=== PATIENT | female | born 1980 | race Two or more races ===

== ENCOUNTER 2023-06-23 18:43 | Emergency (ER) | payer OTHER, SELFPAY ==
--- NOTE | ~2023-06-23 | XR_ITS ---
EXAMINATION: X-RAY LUMBAR SPINE X-RAY SACRUM/COCCYX CLINICAL INFORMATION: Fall, pain. COMPARISON: None available. TECHNIQUE: 3 views of the lumbar spine. 3 views of the sacrum/coccyx. FINDINGS: Lumbar spine: No evidence of acute compression deformity or subluxation. Mild intervertebral disc height loss and facet arthropathy at L5-S1. Small anterior osteophytes at T12 and L1. No significant paraspinal soft tissue abnormality. Right upper quadrant surgical clips. Sacrum/coccyx: No fractures or subluxation. Symmetric SI joints. Pelvic rim is maintained. No significant soft tissue abnormality. XR/XR sacrum coccyx min 2V IMPRESSION: 1. No acute compression deformity or subluxation. 2. Mild lumbar spondylosis at L5-S1. 3. No acute fractures or subluxation of the sacrum/coccyx.
--- NOTE | ~2023-06-23 | XR_ITS ---
EXAMINATION: X-RAY LUMBAR SPINE X-RAY SACRUM/COCCYX CLINICAL INFORMATION: Fall, pain. COMPARISON: None available. TECHNIQUE: 3 views of the lumbar spine. 3 views of the sacrum/coccyx. FINDINGS: Lumbar spine: No evidence of acute compression deformity or subluxation. Mild intervertebral disc height loss and facet arthropathy at L5-S1. Small anterior osteophytes at T12 and L1. No significant paraspinal soft tissue abnormality. Right upper quadrant surgical clips. Sacrum/coccyx: No fractures or subluxation. Symmetric SI joints. Pelvic rim is maintained. No significant soft tissue abnormality. XR/XR lumbar spine 2-3V IMPRESSION: 1. No acute compression deformity or subluxation. 2. Mild lumbar spondylosis at L5-S1. 3. No acute fractures or subluxation of the sacrum/coccyx.
--- NOTE | 2023-06-23 19:30 | ED.FALL ---
HPI - Fall General Chief Complaint: Back Pain/Injury Stated Complaint: fall at work Time Seen by Provider: 06/23/23 21:19 History of Present Illness HPI Narrative: See additional note from 06/23/2023, Dr. Mustafa Related Data Previous Rx's Medication Instructions Recorded cyclobenzaprine 10 mg tablet 10 mg PO TID PRN muscle spasm #10 06/23/23 tabs ketorolac 10 mg tablet 10 mg PO BID #7 tabs 06/23/23 Allergies Allergy/AdvReac Type Severity Reaction Status Date / Time ibuprofen Allergy Unknown Unknown Verified 06/23/23 19:33 Sulfa (Sulfonamide Allergy Unknown Unknown Verified 06/23/23 19:33 Antibiotics) PMFSH Social History Social History Smoked in Last 30 Days: No Use of substances other than those prescribed or required for medical reasons: No Advance Directives: No Advance Directives Information Provided: No Patient : No Physical Exam Vital Signs: Vital Signs: Last Vital Signs Temp 98.2 F 06/23/23 22:00 Pulse 79 06/23/23 22:00 Resp 12 06/23/23 22:00 BP 143/90 H 06/23/23 22:00 Pulse Ox 97 06/23/23 22:00 O2 Del Method Room Air 06/23/23 22:00 BMI result Body Mass Index 42.3 Course Course Course Narrative: This is an RME: Additional HPI, ROS, PE not included below will be deferred to primary provider. Patient 43 year old female who presents emergency department for evaluation of a mechanical cell while work landing on the buttocks pain coccyx region. Medications Administered Discontinued Medications Generic Name Dose Route Start Last Admin Trade Name Freq PRN Reason Stop Dose Admin Cyclobenzaprine HCl 10 mg 06/23/23 21:32 06/23/23 21:47 Cyclobenzaprine Hcl 10 Mg Tablet PO 06/23/23 21:33 10 mg ONCE ONE Administration Ketorolac Tromethamine 60 mg 06/23/23 21:49 06/23/23 21:54 Ketorolac Tromethamine 60 Mg/2 Ml Vial IM 06/23/23 21:50 60 mg ONCE ONE Administration Discharge Plan Discharge Clinical Impression: Lumbar contusion Patient Disposition: Home, Self-Care Instructions: Acute Low Back Pain (ED), Contusion in Adults (ED) Additional Instructions: Please follow-up with your primary care physician tomorrow. If you have any worsening or new symptoms, please return to the emergency room or call 911 Prescriptions: New ketorolac 10 mg tablet 10 mg PO BID Qty: 7 0RF Rx Instructions: maximum total duration of 5 days from all oral, intranasal, or parenteral formulations cyclobenzaprine 10 mg tablet 10 mg PO TID PRN (Reason: muscle spasm) Qty: 10 0RF Stand Alone Forms: Work/School Release Interventions: ED Discharge Assessment Last Done: 06/23/23 22:00 Discharge Date/Time: 06/23/23 22:01
[2023-06-23 19:33] VITALS: BP 129/74; PULSE 80; RESP 20; TEMP 36.3; O2SAT 97; BMI 42.3
[2023-06-23 20:56] VITALS: BP 135/83; PULSE 82; RESP 19; TEMP 36.7; O2SAT 97
--- NOTE | 2023-06-23 21:39 | ED.BACK ---
HPI - Back Pain/Injury General Chief Complaint: Back Pain/Injury Stated Complaint: fall at work Time Seen by Provider: 06/23/23 21:19 Source: patient Mode of arrival: ambulatory Limitations: no limitations History of Present Illness HPI Narrative: Patient comes to the emergency room complaining of lower back pain. Patient states that earlier today patient was at work, patient landed in her buttocks. Patient complaining of lower/coccyx pain. Patient denies head strike, no loss of consciousness, denies being on blood thinners. Patient states that the pain does not radiate down the legs and is able to walk with steady gait. Denies urinary/fecal incontinence or retention Related Data Previous Rx's Medication Instructions Recorded cyclobenzaprine 10 mg tablet 10 mg PO TID PRN muscle spasm #10 06/23/23 tabs ketorolac 10 mg tablet 10 mg PO BID #7 tabs 06/23/23 Allergies Allergy/AdvReac Type Severity Reaction Status Date / Time ibuprofen Allergy Unknown Unknown Verified 06/23/23 19:33 Sulfa (Sulfonamide Allergy Unknown Unknown Verified 06/23/23 19:33 Antibiotics) Review of Systems Review of Systems: Constitutional : No Weight loss, No Fever, No Chills, No Night Sweats, No Fatigue, No Malaise ENT/Mouth : No Hearing loss, No Ear Pain, No Nasal Congestion, No Sinus Pain, No Hoarseness, No sore throat, No Rhinorrhea, No Swallowing Difficulty Eyes: No Eye Pain, No Swelling, No Redness, No Foreign Body, No Discharge, No Vision Changes Cardiovascular : No Chest Pain, No SOB, No Dyspnea on Exertion, No Orthopnea, No Edema, No Palpitations Respiratory : No Cough, No Sputum, No Wheezing, No Smoke Exposure, No Dyspnea Gastrointestinal : No Nausea, No Vomiting, No Diarrhea, No Constipation, No abdominal Pain, No Hematochezia, No Melena Genitourinary : no irregular bleeding, No Dysuria, No Urinary Frequency, No Hematuria, No Urinary Incontinence, No Urgency, No Flank Pain, No Urinary Flow Changes, No Hesitancy Musculoskeletal : Complaining of lumbar/coccyx pain, No joint pain, No Myalgias, No Joint Swelling Skin : No Skin Lesions, No rash Neuro : No Weakness, No Numbness, No Paresthesias, No Loss of Consciousness, No Dizziness, No Headache Psych : No Anxiety/Panic, No Depression, No SI/HI/AH/VH, No Social Issues, Heme/Lymph: No Bruising, No Bleeding,No Lymphadenopathy Endocrine : No Polyuria, No Polydipsia, No Temperature Intolerance [facility] Social History Social History Advance Directives: No Advance Directives Information Provided: No Physical Exam Vital Signs: Vital Signs: Last Vital Signs Temp 98.1 F 06/23/23 20:56 Pulse 82 06/23/23 20:56 Resp 19 06/23/23 20:56 BP 135/83 06/23/23 20:56 Pulse Ox 97 06/23/23 20:56 O2 Del Method Room Air 06/23/23 20:56 BMI result Body Mass Index 42.3 Const: Other: Appearance: Alert. Oriented X3. No acute distress. Eyes: Pupils equal, round and reactive to light. ENT: Pharynx normal. Neck: Normal inspection. Neck supple. No lymph nodes noted. No crepitus CVS: Normal heart rate and rhythm. Pulses normal. Normal S1 and S2 Respiratory: No respiratory distress. Breath sounds normal. No Wheezing. No rales Abdomen: Soft and nontender. No rigidity. No distention. Back: Pain to palpation in lumbar and spinal area, no bilateral pain. No ecchymosis, patient able to flex and extend the lumbar area and entire back without any range of motion or significant pain. Normal gait Skin: Skin warm and dry. Normal skin color. Normal skin turgor. Extremities: No lower extremity edema. No Lacerations. No Rash Neuro: Oriented X 3. No motor deficit. No sensory deficit. Moving all extremities. No slurred speech. CN 2 through 12 grossly intact Psych: calm, cooperative, normal affect Medical Decision Making Medical Decision Making MDM Narrative: My interpretation of x-rays of the lumbar/coccyx: Normal alignment, no obvious deformity. -patient was given IM Toradol and cyclobenzaprine. -according to patient's records, patient is that she is allergic to ibuprofen. I spoke with the patient, patient states that ?many years ago? patient had a mild rash and 1 of her arms. Patient states that she has had multiple doses of ibuprofen without any allergic reaction. Patient denies any anaphylaxis symptoms. Differential Diagnosis Differential Diagnoses: The differential diagnosis associated with the presentation includes (Lumbar contusion, coccyx contusion, fracture) Independent Interpretation I performed an independent interpretation of an: Plain X-Ray Radiology Impression Discussion of test interpretation with radiology: I have reviewed the radiologist's reading. Radiologist Impression: FINDINGS: Lumbar spine: No evidence of acute compression deformity or subluxation. Mild intervertebral disc height loss and facet arthropathy at L5-S1. Small anterior osteophytes at T12 and L1. No significant paraspinal soft tissue abnormality. Right upper quadrant surgical clips. Sacrum/coccyx: No fractures or subluxation. Symmetric SI joints. Pelvic rim is maintained. No significant soft tissue abnormality. XR/XR lumbar spine 2-3V IMPRESSION: 1. No acute compression deformity or subluxation. 2. Mild lumbar spondylosis at L5-S1. 3. No acute fractures or subluxation of the sacrum/coccyx. Discharge Plan Discharge Clinical Impression: Lumbar contusion Patient Disposition: Home, Self-Care Instructions: Acute Low Back Pain (ED), Contusion in Adults (ED) Additional Instructions: Please follow-up with your primary care physician tomorrow. If you have any worsening or new symptoms, please return to the emergency room or call 911 Prescriptions: New ketorolac 10 mg tablet 10 mg PO BID Qty: 7 0RF Rx Instructions: maximum total duration of 5 days from all oral, intranasal, or parenteral formulations cyclobenzaprine 10 mg tablet 10 mg PO TID PRN (Reason: muscle spasm) Qty: 10 0RF Stand Alone Forms: Work/School Release
[2023-06-23] MEDS: Cyclobenzaprine HCl 10 MG TABLET PO (21:47)
[2023-06-23] MEDS: Ketorolac Tromethamine 60 MG/2 ML VIAL IM (21:54)
[2023-06-23 22:00] VITALS: BP 143/90; PULSE 79; RESP 12; TEMP 36.8; O2SAT 97
== END 2023-06-23 22:01 | disposition home or self-care (01) ==
PROVIDERS: Emergency Provider Emergency Medicine; PCP Nurse Practitioner Family
DX: S30.0XXA Contusion of lower back and pelvis, initial encounter (principal); W01.10XA Fall on same level from slipping, tripping and stumbling with subsequent striking against unspecified object, initial encounter; Y93.9 Activity, unspecified; Y92.9 Unspecified place or not applicable; Y99.0 Civilian activity done for income or pay
CPT/HCPCS: 72100; 72220; 96372; 99284; J1885

== ENCOUNTER 2023-09-19 16:21 | Emergency (ER) | payer OTHER, SELFPAY ==
--- NOTE | ~2023-09-19 | CT_ITS ---
EXAMINATION: CT ABDOMEN AND PELVIS WITHOUT IV CONTRAST CLINICAL INFORMATION: Right lower abdominal pain COMPARISON: None TECHNIQUE: Multiple axial images were obtained from the superior aspect of the liver through the pubic symphysis without intravenous contrast. Images were evaluated on independent dedicated 3-D workstation and 3-D images were reconstructed with concurrent radiologist supervision and subsequently interpreted. Oral contrast was not administered. This CT examination was performed using dose optimization techniques as appropriate, variously including the following: *Automated exposure control *Adjustment of mA and/or kV according to patient size (this includes techniques or standardized protocols for targeted exams where dose is matched to indication/reason for exam; i.e. extremities or head) *Use of iterative reconstruction technique DLP: 1249 mGy-cm FINDINGS: LUNG BASES: The visualized lung bases are clear. CARDIOMEDIASTINUM: The visualized heart is normal in size without pericardial effusion. No coronary artery calcification. LIVER: Homogeneous in attenuation. Normal in size. GALLBLADDER: Absent BILIARY SYSTEM: No intrahepatic or extrahepatic biliary dilation. PANCREAS: Atrophic. No contour deforming solid mass. SPLEEN: Normal in size. GENITOURINARY: No contour deforming masses. No perinephric fluid collection. No renal calculi. No hydroureteronephrosis. ADRENAL GLANDS: Unremarkable. REPRODUCTIVE: Anteverted uterus. Left adnexal cyst measuring 4.1 cm (HU 14). GASTROINTESTINAL: The visualized alimentary tract is normal in course. No evidence of obstruction. APPENDIX: The appendix is not visualized; however, no pericecal inflammatory changes are seen in the right lower quadrant. PERITONEUM: No pneumoperitoneum. No intra-abdominal fluid collection. VASCULATURE: No abdominal aortic aneurysm. LYMPH NODES: No pathologically enlarged abdominal or pelvic lymph nodes. SOFT TISSUES/MUSCULOSKELETAL: There is no acute fracture or significant focal osseous lesion. CT/CT abdomen pelvis wo IV con IMPRESSION: No acute pathology of the abdomen or pelvis on this noncontrast study. Fleischner guidelines were followed.
[2023-09-19 16:31] VITALS: BP 153/74; PULSE 92; RESP 18; TEMP 36.7; O2SAT 98; BMI 47.9
--- NOTE | 2023-09-19 16:31 | ED.GENADULT ---
HPI - General Adult General Chief complaint: Fever Stated complaint: fever shallow breathing bone ache Time Seen by Provider: 09/19/23 18:09 Source: patient Mode of arrival: ambulatory Limitations: no limitations History of Present Illness ED Provider: ILDA HICKMAN PA-C HPI narrative: 43-year-old female with past medical history significant for asthma presents to the ED today for evaluation of general malaise, diffuse myalgias, intermittent fevers, and multiple episodes of diarrhea x2 days. States her stool is completely watery. Reports associated right lower quadrant pain that does not radiate. Admits to T-max of a 103? at home last night. Reports noticing an itchy rash just below her umbilicus a few days ago. Reports taking Tylenol, DayQuil and NyQuil with minimal relief. Last dose around 11:00 a.m. today. Denies known sick contacts. Denies recent antibiotic use. Admits she attended a concert with over [phone] people denies prior to onset of symptoms. Denies known recent tick or insect bites however does report [place] outside in the [place] during father's Day weekend. Denies sore throat, cough, constipation, nausea or vomiting, constipation, joint swelling. Denies chance of . Related Data Previous Rx's ?Medication ?Instructions ?Recorded cyclobenzaprine 10 mg tablet 10 mg PO TID PRN muscle spasm #10 06/23/23 tabs ketorolac 10 mg tablet 10 mg PO BID #7 tabs 06/23/23 mupirocin 2 % topical ointment 1 appl topical TID #15 grams 09/19/23 Allergies Allergy/AdvReac Type Severity Reaction Status Date / Time ibuprofen Allergy Unknown Unknown Verified 09/19/23 16:37 Sulfa (Sulfonamide Allergy Unknown Unknown Verified 09/19/23 16:37 Antibiotics) Review of Systems Review of Systems: Constitutional: No fever, chills, fatigue, night sweats, weight changes ENT/Mouth: No ear pain, hearing loss, nasal congestion, sinus pain, rhinorrhea, sore throat Eyes: No eye pain, swelling, redness, vision changes, discharge Cardio: No chest pain, palpitations, POMPA, orthopnea, peripheral edema Pulm: No SOB, cough, sputum, wheezing, dyspnea, hemoptysis GI: No nausea, vomiting, hematemesis, constipation, hematochezia, melena, +diarrhea, + abdominal pain : No irregular bleeding, dysuria, frequency, urgency, hesitancy, hematuria, flank pain, urinary flow changes, urinary incontinence or retention MSK: No back pain, neck pain, joint pain, +myalgias Skin: No lesions, rashes Neuro: No weakness, numbness, paresthesias, LOC, dizziness, headache Psych: No anxiety/panic, depression, SI/HI, AH/VH All other systems reviewed and are negative. [facility] Past Medical History Attestation statement: The following information was validated with the patient. Source: old records reviewed and nursing notes reviewed Social History Social History Smoked in Last 30 Days: No Advance Directives: No Advance Directives Information Provided: No Do you have a plan to hurt others: No Plan Physical Exam ED Vital Signs: Vital Signs - 24 hr 09/19/23 16:31 09/19/23 19:20 09/19/23 22:13 Temperature 98.1 F 98.1 F 98.3 F Pulse Rate 92 82 90 Respiratory Rate 18 20 20 Blood Pressure 153/74 H 136/80 159/89 H Pulse Oximetry 98 97 96 Oxygen Delivery Method Room Air Room Air Room Air 09/20/23 00:54 Temperature 98.3 F Pulse Rate 90 Respiratory Rate 20 Blood Pressure 159/89 H Pulse Oximetry 96 Oxygen Delivery Method Room Air BMI result Body Mass Index 47.9 Patient hypertensive, vitals otherwise WNL. Afebrile Const Other: Slightly diaphoretic, ill-appearing General: cooperative, comfortable and no acute distress Orientation/consciousness: patient oriented x3 Limitations: no limitations [facility] Head: Yes normal to inspection Ears: hearing grossly normal bilaterally, external ears normal, TM's normal bilaterally, EAC's normal, mastoids normal and no periauricular adenopathy Mouth: Normal oral and palatal mucosa present Throat: Yes posterior oropharynx normal, Yes tonsils normal and Yes uvula midline Eyes General: appearance normal, both eyes and all related structures Neck Neck: Yes normal visual inspection, Yes full ROM, Yes no lymphadenopathy and Yes no meningeal signs Resp Effort & Inspection: normal respiratory effort and able to speak in complete sentences Auscultation: clear to auscultation bilaterally Cardio Rate: regular rate Rhythm: regular rhythm GI Other: + see photo of lower abdomen below + obese abdomen, soft, nondistended, tender to palpation of right lower quadrant without rebound tenderness or guarding. Normoactive bowel sounds x4. General: Yes no CVA tenderness Back/Spine/Pelvis Back: no CVA tenderness Skin Other: + see photos + Maculopapular rash noted to lower abdomen just under umbilicus. No sloughing. No involvement of palms, soles, web spaces. No involvement of mucous membranes. No target lesions noted. Non dermatomal pattern. Neuro General: patient oriented x3 and no meningeal signs Course Course Course Narrative: This is a rapid medical exam performed by Leslie Neff NP: Additional HPI, ROS, PE not included below will be deferred to primary provider. Patient is a 43-year-old female with history of asthma presenting to the ED with complaint of fatigue, fever, shortness of breath since Monday. Called out of work yesterday, felt slightly better today after taking medication so came in to work, then felt short of breath again. Denies N/V/D. Generalized body aches. Recently at a concert with large amount of people. Plan: viral and strep swabs Reevaluation(s) Reevaluation #1: 1908-- She has tested negative for covid, flu, rsv, and strep throat. Patient stable at the end of my shift. Sign-out given to Cary HOWARD pending labs, UA, CT, Gi panel/ cdiff, IVF, and disposition. Time: 20:44 Reevaluation #2: Received patient in sign out pending labs, UA, GI panel, and CT A/P. Labs grossly within normal limits. UA, GI panel, and CT A/P pending. Patient signed out to ANITA Herron for final disposition. Reevaluation #3: CT/CT abdomen pelvis wo IV con IMPRESSION: No acute pathology of the abdomen or pelvis on this noncontrast study. Urinalysis without infection or microscopic hematuria, GI panel stool studies sent and are pending. C diff negative. Symptoms at this time most consistent with viral syndrome, and folliculitis of the abdomen. Stable for discharge home Time: 21:38 Medications Administered Discontinued Medications Generic Name Dose Route Start Last Admin Trade Name Freq PRN Reason Stop Dose Admin Sodium Chloride 1,000 mls @ 999 mls/hr 09/19/23 18:30 09/19/23 20:37 Ns IV 09/19/23 19:30 Infused .Q1H1M KRISS Infusion Medical Decision Making Medical Decision Making [facility] Narrative: 43-year-old female with past medical history significant for asthma presents to the ED today for evaluation of general malaise, diffuse myalgias, intermittent fevers, and multiple episodes of diarrhea x2 days. Patient is slightly hypertensive, vitals otherwise WNL. Afebrile. On exam, obese abdomen, soft, nondistended, tender to palpation of right lower quadrant without rebound tenderness or guarding. Maculopapular rash noted to lower abdomen just under umbilicus. No sloughing. No involvement of palms, soles, web spaces. No involvement of mucous membranes. No target lesions noted. Non dermatomal pattern. No joint effusions. No CVAT bilaterally. Differential diagnosis includes viral syndrome, anemia, electrolyte derangement, dehydration, appendicitis, diverticulosis, diverticulitis. Viral swabs and strep swab obtained prior to my assumption of care. Will add on basic labs, GI panel, C diff testing, Lyme/tick panel, IV fluids, CT abdomen/pelvis and urinalysis. Differential Diagnosis Differential Diagnoses: The differential diagnosis associated with the presentation includes as above. Admission/Observation Consideration of admission/observation: Escalation of care including admission/observation considered Admission considered on presentation. Lab Data [facility] Lab Attestation statement: I reviewed the patient's lab results. as above. 09/19/23 18:28 09/19/23 18:28 Labs: Lab Results 09/19/23 09/19/23 09/19/23 Range/Units 16:47 18:28 22:28 WBC 6.2 (4.8-10.8) X10*3/uL RBC 4.36 (4.20-5.50) X10*6/uL Hgb 12.2 (12.0-16.0) g/dl Hct 36.1 L (37.0-47.0) % MCV 82.8 (80.0-98.0) fL MCH 28.0 (27.0-33.0) pg MCHC 33.8 (31.0-35.0) g/dl RDW 14.2 (11.0-16.0) % Plt Count 225 (160-400) X10*3/uL MPV 10.6 (9.4-12.3) fL Immature Gran % (Auto) 0.2 (0.0-0.4) % Neut % (Auto) 68.8 (45-73) % Lymph % (Auto) 18.9 L (20-40) % [place] % (Auto) 8.5 (2-11) % Eos % (Auto) 3.4 (0-4) % Baso % (Auto) 0.2 (0-2) % Lymph # (Auto) 1.2 (1.2-4.9) X10*3/uL [place] # (Auto) 0.5 (0.1-1.2) X10*3/uL Eos # (Auto) 0.2 (0.0-0.4) X10*3/uL Baso # (Auto) 0.0 (0.0-0.2) X10*3/uL Abs Immat Gran (auto) 0.01 (0.00-0.03) X10*3/uL Absolute Neuts (auto) 4.3 (2.0-8.3) x10*3/uL Absolute Nucleated RBC 0.000 (0.0-0.012) X10*3/uL Nucleated RBC % (auto) 0.0 (0.0-0.2) /100WBC Sodium 142 (135-145) mmol/L Potassium 3.9 (3.3-5.1) mmol/L Chloride 106 (96-108) mmol/L Carbon Dioxide 32 H (22-29) mmol/L Anion Gap 8 L (12-20) BUN 17 H (9-16) mg/dL Creatinine 0.77 (0.5-1.4) mg/dL Estim Creat Clear Calc 151.1 Estimated GFR > 60 Random Glucose 88 (60-115) mg/dL Calcium 9.1 (8.4-10.2) mg/dL Magnesium 2.1 (1.6-2.6) mg/dL Total Bilirubin 1.2 H (0.0-1.0) mg/dL AST 43 H (5-31) U/L ALT 72 H (0-31) U/L Alkaline Phosphatase 46 (39-117) U/L Total Protein 6.7 (6.5-8.0) g/dL Albumin 4.0 (3.5-5.0) g/dL Lipase 14 (8-78) U/L Beta HCG, Quant < 2 mIU/mL Urine Color Yellow Urine Appearance Clear Urine pH 6.5 (5.0-9.0) Ur Specific [place] 1.025 (1.005-1.025) Urine Protein Trace (Neg-Trace) mg/dL Urine Glucose (UA) Negative (Negative) mg/dL Urine Ketones Negative (Negative) mg/dL Urine Blood Negative (Negative) Urine Nitrite Negative (Negative) Ur Leukocyte Esterase Negative (Negative) C. difficile Tox B Gene (Negative) Influenza Type A (PCR) NEGATIVE (Negative) Influenza Type B (PCR) NEGATIVE (Negative) RSV RNA Qual (PCR) NEGATIVE (Negative) SARS-CoV-2 RNA (RT-PCR) NEGATIVE (Negative) S. pyogenes GrpA HAIDER Negative (Negative) 09/19/23 Range/Units 22:49 WBC (4.8-10.8) X10*3/uL RBC (4.20-5.50) X10*6/uL Hgb (12.0-16.0) g/dl Hct (37.0-47.0) % MCV (80.0-98.0) fL MCH (27.0-33.0) pg MCHC (31.0-35.0) g/dl RDW (11.0-16.0) % Plt Count (160-400) X10*3/uL MPV (9.4-12.3) fL Immature Gran % (Auto) (0.0-0.4) % Neut % (Auto) (45-73) % Lymph % (Auto) (20-40) % [place] % (Auto) (2-11) % Eos % (Auto) (0-4) % Baso % (Auto) (0-2) % Lymph # (Auto) (1.2-4.9) X10*3/uL [place] # (Auto) (0.1-1.2) X10*3/uL Eos # (Auto) (0.0-0.4) X10*3/uL Baso # (Auto) (0.0-0.2) X10*3/uL Abs Immat Gran (auto) (0.00-0.03) X10*3/uL Absolute Neuts (auto) (2.0-8.3) x10*3/uL Absolute Nucleated RBC (0.0-0.012) X10*3/uL Nucleated RBC % (auto) (0.0-0.2) /100WBC Sodium (135-145) mmol/L Potassium (3.3-5.1) mmol/L Chloride (96-108) mmol/L Carbon Dioxide (22-29) mmol/L Anion Gap (12-20) BUN (9-16) mg/dL Creatinine (0.5-1.4) mg/dL Estim Creat Clear Calc Estimated GFR Random Glucose (60-115) mg/dL Calcium (8.4-10.2) mg/dL Magnesium (1.6-2.6) mg/dL Total Bilirubin (0.0-1.0) mg/dL AST (5-31) U/L ALT (0-31) U/L Alkaline Phosphatase (39-117) U/L Total Protein (6.5-8.0) g/dL Albumin (3.5-5.0) g/dL Lipase (8-78) U/L Beta HCG, Quant mIU/mL Urine Color Urine Appearance Urine pH (5.0-9.0) Ur Specific [place] (1.005-1.025) Urine Protein (Neg-Trace) mg/dL Urine Glucose (UA) (Negative) mg/dL Urine Ketones (Negative) mg/dL Urine Blood (Negative) Urine Nitrite (Negative) Ur Leukocyte Esterase (Negative) C. difficile Tox B Gene NEGATIVE (Negative) Influenza Type A (PCR) (Negative) Influenza Type B (PCR) (Negative) RSV RNA Qual (PCR) (Negative) SARS-CoV-2 RNA (RT-PCR) (Negative) S. pyogenes GrpA HAIDER (Negative) Independent Interpretation I performed an independent interpretation of an: CT Scan Interpretation: CT abdomen/ pelvis without bowel wall thickening, agree with radiologist's interpretation. Radiology Impression Discussion of test interpretation with radiology: I have reviewed the radiologist's reading. Radiologist Impression: EXAMINATION: CT ABDOMEN AND PELVIS WITHOUT IV CONTRAST CLINICAL INFORMATION: Right lower abdominal pain COMPARISON: None TECHNIQUE: Multiple axial images were obtained from the superior aspect of the liver through the pubic symphysis without intravenous contrast. Images were evaluated on independent dedicated 3-D workstation and 3-D images were reconstructed with concurrent radiologist supervision and subsequently interpreted. Oral contrast was not administered. This CT examination was performed using dose optimization techniques as appropriate, variously including the following: *Automated exposure control *Adjustment of mA and/or kV according to patient size (this includes techniques or standardized protocols for targeted exams where dose is matched to indication/reason for exam; i.e. extremities or head) *Use of iterative reconstruction technique DLP: 1249 mGy-cm FINDINGS: LUNG BASES: The visualized lung bases are clear. CARDIOMEDIASTINUM: The visualized heart is normal in size without pericardial effusion. No coronary artery calcification. LIVER: Homogeneous in attenuation. Normal in size. GALLBLADDER: Absent BILIARY SYSTEM: No intrahepatic or extrahepatic biliary dilation. PANCREAS: Atrophic. No contour deforming solid mass. SPLEEN: Normal in size. GENITOURINARY: No contour deforming masses. No perinephric fluid collection. No renal calculi. No hydroureteronephrosis. ADRENAL GLANDS: Unremarkable. REPRODUCTIVE: Anteverted uterus. Left adnexal cyst measuring 4.1 cm (HU 14). GASTROINTESTINAL: The visualized alimentary tract is normal in course. No evidence of obstruction. APPENDIX: The appendix is not visualized; however, no pericecal inflammatory changes are seen in the right lower quadrant. PERITONEUM: No pneumoperitoneum. No intra-abdominal fluid collection. VASCULATURE: No abdominal aortic aneurysm. LYMPH NODES: No pathologically enlarged abdominal or pelvic lymph nodes. SOFT TISSUES/MUSCULOSKELETAL: There is no acute fracture or significant focal osseous lesion. CT/CT abdomen pelvis wo IV con IMPRESSION: No acute pathology of the abdomen or pelvis on this noncontrast study. Fleischner guidelines were followed. Prescription Management I considered prescription management with: Pain Medication and Antibiotic Social Determinants Patient?s care significantly limited by Social Determinants of Health including: Other Social Determinant of Health Critical Care Time Critical Care Time Critical Care Time: No Discharge Plan Discharge Clinical Impression: Viral infection, Folliculitis Patient Disposition: Home, Self-Care Instructions: Viral Syndrome (ED) Additional Instructions: You were evaluated in the emergency department today for fever and diarrhea. Your Covid, flu, and strep tests were all negative. Your symptoms are likely related to a viral illness which will resolve on its own with time and rest. You were also evaluated for a rash to your abdomen. You are being prescribed a topical antibiotic ointment to apply to the area. Avoid scratching the area as this can worsen the infection. Assess the area daily and follow up with PCP or return to the ED if you develop increasing redness, swelling, or thick yellow drainage. You should ensure adequate fluid intake, and can use Tylenol 650 mg or ibuprofen 600 mg every 6 hours as needed for fever or discomfort. Please follow-up with your primary care provider this week. Return to the emergency department if you develop chest pain, worsening shortness of breath, difficulty swallowing, fever 100.4? F or greater or any other concerning symptoms. Prescriptions: New mupirocin 2 % ointment 1 appl topical TID Qty: 15 0RF No Action ketorolac 10 mg tablet 10 mg PO BID Qty: 7 0RF Rx Instructions: maximum total duration of 5 days from all oral, intranasal, or parenteral formulations cyclobenzaprine 10 mg tablet 10 mg PO TID PRN (Reason: muscle spasm) Qty: 10 0RF Stand Alone Forms: Work/School Release Interventions: ED Discharge Assessment Last Done: 09/20/23 00:54 Discharge Date/Time: 09/20/23 00:56 Print Language: [place]
[2023-09-19 17:03] LABS: IDNOW Serial# 58CA691E; Strep A Nucleic Acid Negative (Negative)
[2023-09-19 17:34] LABS: Influenza A PCR NEGATIVE (Negative); Influenza B PCR NEGATIVE (Negative); Resp Syncy Virus RNA Qual PCR NEGATIVE (Negative); SARS COV2 PCR INHOUSE NEGATIVE (Negative)
[2023-09-19] MEDS: 0.9 % Sodium Chloride 1,000 ML 999 ML IV (18:32)
[2023-09-19 18:35] LABS: MANUAL DIFF FLAG NO
[2023-09-19 18:48] LABS: Basophils Percent Auto 0.2 % (0-2); Eosinophils Absolute Auto 0.2 X10*3/uL (0.0-0.4); Eosinophils Percent Auto 3.4 % (0-4); Hematocrit 36.1 % (37.0-47.0); Hemoglobin 12.2 g/dl (12.0-16.0); Imm Gran Abs Auto 0.01 X10*3/uL (0.00-0.03); Imm Gran Pct Auto 0.2 % (0.0-0.4); Lymphocytes Absolute Auto 1.2 X10*3/uL (1.2-4.9); Lymphocytes Percent Auto 18.9 % (20-40); Mean Corpuscular HGB Conc 33.8 g/dl (31.0-35.0); Mean Corpuscular Volume 82.8 fL (80.0-98.0); Mean Platelet Volume 10.6 fL (9.4-12.3); Monocytes Absolute Auto 0.5 X10*3/uL (0.1-1.2); Monocytes Percent Auto 8.5 % (2-11); Neutrophils Absolute Auto 4.3 x10*3/uL (2.0-8.3); Neutrophils Percent Auto 68.8 % (45-73); Platelet Count 225 X10*3/uL (160-400); Red Blood Count 4.36 X10*6/uL (4.20-5.50); Red Cell Distribution Width 14.2 % (11.0-16.0); White Blood Count 6.2 X10*3/uL (4.8-10.8)
[2023-09-19 18:56] LABS: Alanine Aminotransferase 72 U/L (0-31); Alkaline Phosphatase 46 U/L (39-117); Anion Gap 8 (12-20); Aspartate Amino Transferase 43 U/L (5-31); Bilirubin Total 1.2 mg/dL (0.0-1.0); Blood Urea Nitrogen 17 mg/dL (9-16); Calcium 9.1 mg/dL (8.4-10.2); Carbon Dioxide 32 mmol/L (22-29); Chloride 106 mmol/L (96-108); Creatinine Clr Calc Pharmacy 151.1; Estimated Glomerular Filt Rate > 60; Glucose Random 88 mg/dL (60-115); Lipase 14 U/L (8-78); Magnesium 2.1 mg/dL (1.6-2.6); Potassium 3.9 mmol/L (3.3-5.1); Sodium 142 mmol/L (135-145); Total Protein 6.7 g/dL (6.5-8.0)
[2023-09-19 18:57] LABS: HCG Quantitative < 2 mIU/mL
[2023-09-19 19:20] VITALS: BP 136/80; PULSE 82; RESP 20; TEMP 36.7; O2SAT 97
[2023-09-19 22:13] VITALS: BP 159/89; PULSE 90; RESP 20; TEMP 36.8; O2SAT 96
[2023-09-19 22:36] LABS: Appearance Urine Clear; Color Urine Yellow; Glucose Urine UA Negative (Negative); Leukocyte Esterase Urine Negative (Negative); Nitrite Urine Negative (Negative); PH 6.5 (5.0-9.0); Specific Gravity - Urine 1.025 (1.005-1.025); Urine Blood Negative (Negative); Urine Ketones Negative (Negative); Urine Protein Trace mg/dL (Neg-Trace)
--- NOTE | 2023-09-19 22:50 | PC.NURSE ---
UA sent, C-diff and GI panel sent
[2023-09-19 23:46] LABS: CDiff Gene PCR NEGATIVE (Negative)
[2023-09-20 00:54] VITALS: BP 159/89; PULSE 90; RESP 20; TEMP 36.8; O2SAT 96
[2023-09-20 13:39] LABS: Campylobacter Not Detected (Not Detect.); E. coli EAEC Not Detected (Not Detect.); E. coli EPEC Not Detected (Not Detect.); E. coli ETEC Not Detected (Not Detect.); Plesiomonas shigelloides Not Detected (Not Detect.); Salmonella Not Detected (Not Detect.); Vibrio Not Detected (Not Detect.); Vibrio Cholerae Not Detected (Not Detect.); Yersinia enterocolitica Not Detected (Not Detect.)
[2023-09-20 13:40] LABS: Adenovirus F 40/41 Not Detected (Not Detect.); Astrovirus Not Detected (Not Detect.); Cryptosporidium Not Detected (Not Detect.); Cyclospora cayetanensis Not Detected (Not Detect.); E. coli STEC Not Detected (Not Detect.); Entamoeba histolytica Not Detected (Not Detect.); Giardia lamblia Not Detected (Not Detect.); Norovirus GI/GII Not Detected (Not Detect.); Rotavirus A Not Detected (Not Detect.); Sapovirus Not Detected (Not Detect.); Shigella sp./EIEC Not Detected (Not Detect.)
[2023-09-22 02:54] LABS: Lyme Abs Screen <0.90 index
[2023-09-22 12:28] LABS: A. Phagocytphilium DNA,RT-PCR NOT DETECTED (NOT DETECTED); Babesia Microti DNA, RT-PCR NOT DETECTED (NOT DETECTED); Borrelia Miyamotoi,DNA RT-PCR NOT DETECTED (NOT DETECTED); E.Chaffeensis DNA RT-PCR NOT DETECTED (NOT DETECTED); Lyme(Borrelia ssp)DNA RT-PCR NOT DETECTED (NOT DETECTED)
== END 2023-09-20 00:56 | disposition home or self-care (01) ==
PROVIDERS: Physician Assistant Medical; Registered Nurse Emergency; Emergency Provider Emergency Medicine; PCP Nurse Practitioner Family
DX: B34.9 Viral infection, unspecified (principal); L73.9 Follicular disorder, unspecified; R50.9 Fever, unspecified; R06.02 Shortness of breath; R11.2 Nausea with vomiting, unspecified; M79.10 Myalgia, unspecified site; R10.31 Right lower quadrant pain; R19.7 Diarrhea, unspecified; Z03.818 Encounter for observation for suspected exposure to other biological agents ruled out; Z79.899 Other long term (current) drug therapy
CPT/HCPCS: 0241U; 36415; 74176; 80053; 81003; 83690; 83735; 84702; 85025; 86617; 86618; 87468; 87469; 87478; 87484; 87493; 87507; 87651; 87798; 96360; 96361; 99284

== ENCOUNTER 2024-04-11 16:01 | Emergency (ER) | payer OTHER, SELFPAY ==
[2024-04-11 16:18] VITALS: BP 187/112; PULSE 80; RESP 16; TEMP 36.8; O2SAT 98; BMI 40.2
[2024-04-11 16:29] VITALS: PULSE 87; RESP 17; O2SAT 96
[2024-04-11] MEDS: Magnesium Sulfate/D5W 1 GM/100 ML PIGGYBACK IV (17:02)
[2024-04-11] MEDS: methylPREDNISolone Sod Succ 125 MG/2 ML VIAL IVPUSH (17:02)
--- NOTE | 2024-04-11 17:45 | ED.ASTHMA ---
HPI - Asthma General Chief Complaint: Asthma Stated Complaint: asthma/from fit test Time Seen by Provider: 04/11/24 16:29 Source: patient, RN notes reviewed and old records reviewed Mode of arrival: ambulatory Limitations: no limitations History of Present Illness ED Provider: Cori GORDON Narrative: 44-year-old female presents for evaluation of shortness of breath. Patient reports a history of asthma. She reports that she was at work connections getting a ?fit testing performed. She reports after they sprayed into the mask to test her N95, she started to feel short of breath and could not speak She was brought back to room 4 and given a albuterol treatment prior to my evaluation Her symptoms started just a few minutes prior to arrival Denies any fevers Related Data Previous Rx's ?Medication ?Instructions ?Recorded cyclobenzaprine 10 mg tablet 10 mg PO TID PRN muscle spasm #10 06/23/23 tabs ketorolac 10 mg tablet 10 mg PO BID #7 tabs 06/23/23 mupirocin 2 % topical ointment 1 appl topical TID #15 grams 09/19/23 prednisone 20 mg tablet 40 mg (2 x 20 mg) PO DAILY #10 tabs 04/11/24 Allergies Allergy/AdvReac Type Severity Reaction Status Date / Time ibuprofen Allergy Unknown Unknown Verified 04/11/24 16:21 Sulfa (Sulfonamide Allergy Unknown Unknown Verified 04/11/24 16:21 Antibiotics) Review of Systems Constitutional: Constitutional: Denies body ache(s), Denies chills and Denies fever(s) ENT: Denies vertigo and Denies dizziness Cardiovascular: Cardiovascular: Reports dyspnea Respiratory: Respiratory: Reports cough, Reports dyspnea and Reports wheezing Gastrointestinal: Gastrointestinal: Denies abdominal pain, Denies nausea and Denies vomiting Musculoskeletal: Musculoskeletal: Denies back pain Integumentary/Breasts: Skin/Breast: Denies rash Neurologic: Denies vertigo and Denies dizziness Allergic/Immunologic: Allergic/Immunologic: Reports wheezing [facility] Social History Social History Advance Directives: No Advance Directives Information Provided: Yes Do you have a plan to hurt others: No Plan Physical Exam Vital Signs: Vital Signs: Last Vital Signs Temp 98 F 04/11/24 17:51 Pulse 87 04/11/24 17:51 Resp 17 04/11/24 17:51 BP 153/88 H 04/11/24 17:51 Pulse Ox 96 04/11/24 17:51 O2 Del Method Room Air 04/11/24 17:51 BMI result Body Mass Index 40.2 Const: General: healthy appearing, comfortable, no acute distress, alert and awake Nutritional Appearance: well nourished Orientation/consciousness: patient oriented x3 HEENT: Head: Yes normocephalic and Yes atraumatic Eyes: Eyelids: Yes eyelids normal Conjunctivae: conjunctivae normal Sclerae: sclerae normal Corneas: corneas normal Pupils: Equal, round and reactive pupils present EOM: EOMs intact bilaterally Neck: Neck: Yes full ROM Resp: Other: Diminished breath sounds but no wheezing. Of note, the patient received a nebulizer treatment prior to my evaluation that was ordered by the triage provider Effort & Inspection: normal respiratory effort, able to speak in complete sentences and not labored Skin: General skin exam: elasticity normal Neuro: General: patient oriented x3 Cranial nerves: Yes Equal, round and reactive pupils present and Yes Bilaterally intact EOM present Cognition (Neuro): normal cognition Medications Administered Discontinued Medications Generic Name Dose Route Start Last Admin Trade Name Freq PRN Reason Stop Dose Admin Magnesium Sulfate/Dextrose 1 gm in 100 mls @ 300 mls/hr 04/11/24 16:32 04/11/24 17:25 Magnesium Sulfate/D5w IV 04/11/24 16:51 Infused ONCE ONE Infusion Methylprednisolone Sodium Succinate 125 mg 04/11/24 16:32 04/11/24 17:02 Methylprednisolone Sod Succ 125 Mg/2 Ml Vial IVPUSH 04/11/24 16:33 125 mg ONCE ONE Administration Medical Decision Making Medical Decision Making [facility] Narrative: 44-year-old female presents for evaluation of shortness of breath. She is a known asthmatic. She appears to be having an asthma exacerbation that was likely triggered by her fit testing. Her symptoms improved dramatically after albuterol 7.5 mg via nebulizer. She was complaining of chest tightness so I also ordered Solu-Medrol and magnesium. I do not see any indication for a chest x-ray as there was no trauma, her vital signs are stable and she is improving rapidly after nebulizer treatment. I have a low suspicion for pneumonia or pneumothorax. Differential Diagnosis Differential Diagnoses: The differential diagnosis associated with the presentation includes Asthma exacerbation Bronchitis Pneumonia Upper respiratory infection Attestation Attending Attestation: I was personally present and available for consultation in the ED. I have reviewed everything on the chart that is available and agree with the documentation provided by the [facility] including discussion about the assessment, treatment plan and discussion. Based on medical record the care appears appropriate. David Ryan MD [facility] Emergency Medicine Discharge Plan Discharge Clinical Impression: Asthma with acute exacerbation Patient Disposition: Home, Self-Care Instructions: Asthma (ED) Additional Instructions: You likely had an asthma exacerbation during your fit testing Take prednisone 40 mg daily for the next 5 days Prescriptions: New prednisone 20 mg tablet 40 mg PO DAILY Qty: 10 0RF No Action ketorolac 10 mg tablet 10 mg PO BID Qty: 7 0RF Rx Instructions: maximum total duration of 5 days from all oral, intranasal, or parenteral formulations cyclobenzaprine 10 mg tablet 10 mg PO TID PRN (Reason: muscle spasm) Qty: 10 0RF mupirocin 2 % ointment 1 appl topical TID Qty: 15 0RF Interventions: ED Discharge Assessment Last Done: 04/11/24 17:51 Discharge Date/Time: 04/11/24 17:53 Print Language: Divehi
[2024-04-11 17:51] VITALS: BP 153/88; PULSE 87; RESP 17; TEMP 36.6; O2SAT 96
== END 2024-04-11 17:53 | disposition home or self-care (01) ==
PROVIDERS: Emergency Provider Emergency Medicine; PCP Nurse Practitioner Family
DX: J45.901 Unspecified asthma with (acute) exacerbation (principal); R06.02 Shortness of breath
CPT/HCPCS: 94640; 96365; 96375; 99283; 99284; J2919; J3475

== ENCOUNTER 2024-05-16 07:01 | Emergency (ER) | payer OTHER, SELFPAY ==
[2024-05-16 07:23] VITALS: BP 164/94; PULSE 86; RESP 16; TEMP 36; O2SAT 96; BMI 42.6
[2024-05-16 08:33] LABS: Influenza A PCR NEGATIVE (Negative); Influenza B PCR NEGATIVE (Negative); Resp Syncy Virus RNA Qual PCR NEGATIVE (Negative); SARS COV2 PCR INHOUSE NEGATIVE (Negative)
[2024-05-16] MEDS: Acetaminophen 325 MG TABLET 975 MG PO (12:13)
[2024-05-16 12:28] VITALS: BP 178/56; PULSE 76; RESP 20; TEMP 36.6; O2SAT 95
--- NOTE | 2024-05-16 12:29 | MHC.EDTECH ---
vital signs documented and rported to manda Townsend
--- OUTSIDE RECORDS SUMMARY | 2024-05-16 13:08 | XMS_ITS | Clinical Summary ---
Author Organization [address] [facility] Address [address] [place] [address] Phone Care Team Providers Care Cell Room Operator Name Role Phone James Akers MD Primary Care Provider [phone] Allergies Active Allergy Reactions Criticality Noted Date Comments Ciprofloxacin 12/26/2008 Nausea/ diarrhea Ibuprofen Hives 12/26/2005 swelling and redness all over Propranolol Other High 01/15/2020 Altered mental status Sulfa (Sulfonamide Antibiotics) 11/15/2017 diarrhea Medications albuterol 2.5 mg /3 mL (0.083 %) nebulizer solution Take 1 Vial by nebulization every 4 hours as needed for Wheezing, Shortness of Breath or Cough. 2 Active albuterol HFA (PROAIR HFA ; PROVENTIL HFA ; VENTOLIN HFA) 90 mcg/actuation inhaler Inhale 2 Puffs into the lungs every 4 hours as needed for Cough or Wheezing. 2 Active fluticasone furoate (Arnuity Ellipta) 100 mcg/actuation blister with device inhaler Inhale 1 Puff into the lungs daily. 2 Active dextromethorpha n-guaifenesin (Mucinex DM) 60-1,200 mg tablet extended release 12 hr Take 1 Tablet by mouth every 12 hours. 3 Active fluticasone propionate (FLONASE) 50 mcg/actuation nasal spray 2 Sprays by Nasal route daily for 30 days. 1 Active linaCLOtide (Linzess) 145 mcg capsule TAKE 1 TABLET BY MOUTH NEEDED (CONSTIPATION). 4 Active loratadine (CLARITIN) 10 mg tablet Take 1 Tablet by mouth daily. 3 Active montelukast (SINGULAIR) 10 mg tablet TAKE 1 TABLET BY MOUTH AT BEDTIME 4 Active naphazoline-phe niramine (Naphcon-A) 0.025-0.3 % ophthalmic solution Place 1 Drop into both eyes 4 times daily. 2 Active omeprazole (PriLOSEC) [address] capsule Take 1 Capsule by mouth daily. 3 Active SUMAtriptan (IMITREX) 100 mg tablet May repeat dose once after 2 hours, if needed. 2 Active Active Problems Problem Noted Date Diagnosed Date Subclinical hypothyroidism 09/22/2021 Essential hypertension 07/06/2020 Cervical disc herniation 05/25/2020 Coital headache 05/25/2020 Tension headache 05/25/2020 Overview (04/01/2024): MRI of the brain 09/2019 showed minor white matter disease, unchanged from MRI of the brain 12-04-18. 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 Follows with neurology. Esophageal reflux 09/01/2014 Morbid obesity 05/17/2011 Anemia 03/25/2008 Overview (04/01/2024): Fe Def d/t Chronic Blood Loss Displacement of lumbar inter vertebral disc without myelopathy 09/12/2007 Asthma 12/26/2005 Immunizations Name Administration Dates Next Due Moderna SARS-CoV-2 COVID-19, mRNA, LNP-S, preservative free 03/03/2021 Tdap Tetanus diptheria acell ular pertussis (Boostrix; Adacel) 7yo and older 01/09/2020,12/14/2015 Surgical History Surgery Date Site/Laterality Comments TONSILLECTOMY PROCEDURE: HISTORICAL TONSILLECTOMY ADENOIDECTOMY PROCEDURE: HISTORICAL ADENOIDECTOMY CHOLECYSTECTOMY PROCEDURE: HISTORICAL CHOLECYSTECTOMY HERNIA REPAIR PROCEDURE: HISTORICAL HERNIA REPAIR/UMB SECTION PROCEDURE: HISTORICAL DELIVERY Medical History Medical History Date Comments Unspecified asthma(493.90) DX:Un specified asthma(493.90) Morbid obesity (CMS/HCC) 05/17/2011 DX:Morb id obesity (HCC) Esophageal reflux 09/01/2014 DX:Esophageal reflux Family History Medical History Relation Name Comments Colon polyps Father Diabetes Father Hypertension Father Glaucoma Mother Hypertension Mother Diabetes Paternal Grandmother Hypertension Paternal Grandmother Colon polyps Uncle Paternal Breast cancer Neg Hx Colon cancer Neg Hx Ovarian cancer Neg Hx Relation Name Status Comments Father Alive Maternal Grandfather Maternal Grandmother Mother Alive Paternal Grandfather Paternal Grandmother Son Alive Uncle Paternal Alive Social History Tobacco Use Types Packs/Day Years Used Date Smoking Tobacco: Never Smokeless Tobacco: Never Alcohol Use Standard Drinks/Week Comments Yes 0 (1 standard drink = 0.6 oz pur e alcohol) Comments Unknown Sex and Gender Information Value Date Recorded Sex Assigned at Not on file Legal Sex Female 8:29 AM EST Gender Identity Not on file Sexual Orientation Not on file Obstetrics History Last Filed Vital Signs Vital Sign Reading Time Taken Comments Blood Pressure 138/74 03/08/2023 8:13 AM EST Pulse 84 03/08/2023 8:13 AM EST Temperature - - Respiratory Rate - - Oxygen Saturation - - Inhaled Oxygen Concentration - - Weight 152 kg (334 lb) 05/10/2023 10:00 AM EST Height 177.8 cm (5' 10 ) 03/08/2023 8:13 AM EST Body Mass Index 47.92 03/08/2023 8:13 AM EST Plan of Treatment Health Maintenance Due Date Last Done Comments Breast Cancer Screening 1980 Hepatitis B Vaccines (1 of 3 - 19+ 3-dose series) 1999 Pneumococcal Vaccine: Pediatrics (0 to 5 Years) and At-Risk Patients (6 to 64 Years) (1 of 2 - PCV) 1999 Cervical Cancer Screening: P ap Smear 04/08/2019 04/08/2016, 04/08/2016 Depression Screening 03/05/2022 Hepatitis C Screening 03/05/2022 Social Influencers of Health Screening 03/05/2022 Hypertension/CHF/CAD Annual BMP Blood Test 04/22/2023 04/22/2022 COVID-19 Vaccine (2 - 2023-2 5 season) 2023 03/03/2021 Influenza Vaccine (#1) 2023 Cholesterol Screening (Lipid Panel) 04/22/2027 04/22/2022 DTaP,Tdap,and Td Vaccines (3 - Td or Tdap) 01/08/2030 01/09/2020, 12/14/2015 HIV Screening Completed 11/03/2006 HIB Vaccines Aged Out No longer eligi ble based on patient's age to complete this topic HPV Vaccines Aged Out No longer eligi ble based on patient's age to complete this topic Hepatitis A Vaccines Aged Out No long er eligible based on patient's age to complete this topic IPV Vaccines Aged Out No longer eligi ble based on patient's age to complete this topic MMR Vaccines Aged Out No longer eligi ble based on patient's age to complete this topic Meningococcal ACWY Vaccine Aged Out N o longer eligible based on patient's age to complete this topic Meningococcal B Vacine Aged Out No lo nger eligible based on patient's age to complete this topic RSV Immunization Patients Under 20 months Aged Out No longer eligible b ased on patient's age to complete this topic Varicella Vaccines Aged Out No longer eligible based on patient's age to complete this topic Procedures Procedure Name Priority Date/Time Associated Diagnosis Comments ANNUAL BMP BLOOD TEST Routine 04/22/2022 LIPID PANEL Routine 04/22/2022 HPV Routine 04/08/2016 HIV SCREENING Routine 11/03/2006 from Last 3 Months or Most Recently Relevant to Health Maintenance Results * Annual BMP Blood Test (04/22/2022) Pathologist [facility] Annual BMP Blood Test Abstracted Historical Provider HEALTH MAINTENANCE Final Result * Lipid panel (04/22/2022) LDL/HDL Ratio 3 0 - 4 Triglycerides 96 0 - 150 mg/dL Cholesterol 139 0 - 200 mg/dL HDL 45 >=40 mg/dL LDL Cholesterol 75 0 - 100 mg/dL Blood Venous blood specimen / Unknown Historical Provider LAB BLOOD ORDERABLES Cherelle l Result * Cervical Cancer Screening: HPV (04/08/2016) Cervical Cancer Screening: HPV Negative, Abstracted us Historical Provider HEALTH MAINTENANCE Final Result * HIV Screening (11/03/2006) HIV Screening Abstracted us Historical Provider HEALTH MAINTENANCE Final Result from Last 3 Months or Most Recently Relevant to Health Maintenance Advance Directives Documents on File Type Date Recorded Patient Auto Painter Expl anation Health Care Decision (hx) 12/08/2018 AD RUBIO DIRECTIVE Health Care Decision (hx) 12/08/2018 AD RUBIO DIRECTIVE Health Care Decision (hx) 12/08/2018 AD RUBIO DIRECTIVE Health Care Decision (hx) 12/08/2018 AD RUBIO DIRECTIVE Health Care Decision (hx) 12/08/2018 AD RUBIO DIRECTIVE Health Care Decision (hx) 12/08/2018 AD RUBIO DIRECTIVE Health Care Decision (hx) 12/08/2018 AD RUBIO DIRECTIVE Health Care Decision (hx) 03/02/2012 AD RUBIO DIRECTIVE Health Care Decision (hx) 03/02/2012 AD RUBIO DIRECTIVE Health Care Decision (hx) 03/02/2012 AD RUBIO DIRECTIVE Health Care Decision (hx) 03/02/2012 AD RUBIO DIRECTIVE Health Care Decision (hx) 03/02/2012 AD RUBIO DIRECTIVE Health Care Decision (hx) 03/02/2012 AD RUBIO DIRECTIVE Health Care Decision (hx) 03/02/2012 AD RUBIO DIRECTIVE Health Care Decision (hx) 02/10/2012 AD RUBIO DIRECTIVE Health Care Decision (hx) 02/10/2012 AD RUBIO DIRECTIVE Health Care Decision (hx) 02/10/2012 AD RUBIO DIRECTIVE Health Care Decision (hx) 02/10/2012 AD RUBIO DIRECTIVE Health Care Decision (hx) 02/10/2012 AD RUBIO DIRECTIVE Health Care Decision (hx) 02/10/2012 AD RUBIO DIRECTIVE Health Care Decision (hx) 02/10/2012 AD RUBIO DIRECTIVE Care Teams Cell Room Operator Relationship Specialty Start Date End Date James Akers MD [address] [place] [id number] PCP - General Internal Medicine 01/31/24
--- NOTE | 2024-05-16 16:39 | ED_ITS ---
HPI - General Adult General Chief complaint: General Medical Stated complaint: sore throat ear pain Source: patient, RN notes reviewed and old records reviewed Mode of arrival: ambulatory Limitations: no limitations History of Present Illness ED Provider: Tawanda GORDON narrative: Patient is a 44-year-old female presenting with complaint of bilateral ear pain, L>R since Monday. Had to leave work due to pain. Also some nasal congestion and slightly scratchy throat. Decreased hearing today. Denies pain with swallowing, fevers. Using Tylenol with little relief. MD complaint: ear pain Onset (ago): day(s) Related Data Previous Rx's ?Medication ?Instructions ?Recorded cyclobenzaprine 10 mg tablet 10 mg PO TID PRN muscle spasm #10 06/23/23 tabs ketorolac 10 mg tablet 10 mg PO BID #7 tabs 06/23/23 mupirocin 2 % topical ointment 1 appl topical TID #15 grams 09/19/23 prednisone 20 mg tablet 40 mg (2 x 20 mg) PO DAILY #10 tabs 04/11/24 amoxicillin 875 mg-potassium 1 tab PO BID #13 tabs 05/16/24 clavulanate 125 mg tablet Allergies Allergy/AdvReac Type Severity Reaction Status Date / Time ibuprofen Allergy Unknown Unknown Verified 05/16/24 07:23 Sulfa (Sulfonamide Allergy Unknown Unknown Verified 05/16/24 07:23 Antibiotics) Review of Systems Review of Systems: As per HPI Yes all other systems are reviewed and are negative Constitutional: Constitutional: Reports as per HPI [facility] Social History Social History Advance Directives: No Advance Directives Information Provided: No Do you have a plan to hurt others: No Plan Physical Exam ED Vital Signs: Vital Signs - 24 hr 05/16/24 07:23 05/16/24 12:28 Temperature 96.8 F 97.8 F Pulse Rate 86 76 Respiratory Rate 16 20 Blood Pressure 164/94 H 178/56 H Pulse Oximetry 96 95 Oxygen Delivery Method Room Air Room Air BMI result Body Mass Index 42.6 Vital signs have been reviewed and appear to be correct. Blood pressure elevated. Heart rate normal. Respiratory rate normal. Temperature normal. Oxygen saturation normal. Const General: cooperative, healthy appearing and no acute distress Orientation/consciousness: oriented to person, oriented to place, oriented to time and patient oriented x3 Limitations: no limitations HENMT Head: Yes normocephalic and Yes atraumatic Ears: external ears normal, EAC's normal, mastoids normal bilaterally, no periauricular adenopathy and TM abnormal wth effusion purulent bilateral and erythematous bilateral General nose exam: Normal external nose present Face and sinus: Yes face symmetric Mouth: oropharynx normal and moist mucous membranes Throat: Yes posterior oropharynx normal, Yes tonsils normal, Yes uvula midline, No peritonsillar mass and No uvular edema Eyes Pupils: Equal, round and reactive pupils present Neck Neck: Yes normal visual inspection, Yes no lymphadenopathy and Yes supple Resp Effort & Inspection: normal respiratory effort and able to speak in complete sentences Auscultation: clear to auscultation bilaterally Cardio Rate: regular rate Rhythm: regular rhythm Heart sounds: S1 normal heart sound present and S2 normal heart sound present GI Palpation (GI): Soft to palpation and nontender Auscultation: normoactive bowel sounds General: Yes no CVA tenderness Back/Spine/Pelvis Back: no CVA tenderness Skin General skin exam: elasticity normal and turgor normal Neuro General: oriented to person, oriented to place, oriented to time, patient oriented x3, moves all extremities, no focal motor deficits and CN's II-XI intact bilaterally Cranial nerves: Yes Equal, round and reactive pupils present Cognition (Neuro): normal cognition Extrem General: Yes full ROM, Yes no pedal edema and Yes no calf tenderness Psych Mental Status: mental status grossly normal Affect: normal affect Thought process: Normal thought process present Medications Administered Discontinued Medications Generic Name Dose Route Start Last Admin Trade Name Adrián PRN Reason Stop Dose Admin Acetaminophen 975 mg 05/16/24 11:48 05/16/24 12:13 Acetaminophen 325 Mg Tablet PO 05/16/24 11:49 975 mg ONCE ONE Administration Medical Decision Making Medical Decision Making [facility] Narrative: Patient is a 44-year-old female presenting with complaint of bilateral ear pain, L>R since Monday. On exam patient is awake, A+Ox3, BP elevated, VS otherwise WNL, afebrile, normal neurological exam without focal deficits, physical exam findings as above. Given reported symptoms and physical exam findings, initial differential includes but is not limited to otitis media, otitis externa, viral illness, COVID, flu, RSV. Physical exam findings consistent with bilateral otitis media. Viral serology negative. Will start patient on Augmentin, also advised nasal saline spray. Follow-up with PCP as needed. Return precautions discussed. Patient verbalized understanding of and agreement with plan. Differential Diagnosis Differential Diagnoses: The differential diagnosis associated with the presentation includes As per [facility] Lab Data [facility] Lab Attestation statement: I reviewed the patient's lab results. As per [facility] Labs: Lab Results 05/16/24 Range/Units 07:37 Influenza Type A (PCR) NEGATIVE (Negative) Influenza Type B (PCR) NEGATIVE (Negative) RSV RNA Qual (PCR) NEGATIVE (Negative) SARS-CoV-2 RNA (RT-PCR) NEGATIVE (Negative) External Record Review External record reviewed: Inpatient record, Office record and Outpatient record Prescription Management I considered prescription management with: Antibiotic Discharge Plan Discharge Clinical Impression: Acute otitis media Patient Disposition: Home, Self-Care Instructions: Ear Infection (ED) Additional Instructions: You were evaluated in the emergency department today for ear pain. Your evaluation suggests that your pain is due to an ear infection. Please take your prescribed antibiotics as directed for the full course of the medication. You can apply warm compresses to the area for 10-15 minutes at a time several times daily. We recommend that you take 650 mg of Tylenol or 600 mg of ibuprofen every 6 hours as needed. If necessary, you can alternate these medications every 3 hours. For example, at 9:00 a.m. take Tylenol, then at noon take ibuprofen, then at 3:00 p.m. take Tylenol, etc.. Please follow up with your primary care provider within two days. Return to the emergency department if you experience hearing loss, discharge from your ear, headaches, fevers, recurrent vomiting, or any other concerning symptoms. Prescriptions: New amoxicillin-pot clavulanate 875-125 mg tablet 1 tab PO BID Qty: 13 0RF No Action ketorolac 10 mg tablet 10 mg PO BID Qty: 7 0RF Rx Instructions: maximum total duration of 5 days from all oral, intranasal, or parenteral formulations cyclobenzaprine 10 mg tablet 10 mg PO TID PRN (Reason: muscle spasm) Qty: 10 0RF mupirocin 2 % ointment 1 appl topical TID Qty: 15 0RF prednisone 20 mg tablet 40 mg PO DAILY Qty: 10 0RF Stand Alone Forms: Work/School Release Print Language: Wolof
[2024-05-16] MEDS: Amoxicillin/Potassium Clav 875 MG TABLET PO (16:44)
[2024-05-16 16:49] VITALS: BP 178/56; PULSE 76; RESP 20; TEMP 36.6; O2SAT 95
== END 2024-05-16 16:50 | disposition home or self-care (01) ==
PROVIDERS: Emergency Provider Emergency Medicine; PCP Nurse Practitioner Family
DX: H66.93 Otitis media, unspecified, bilateral (principal); J02.9 Acute pharyngitis, unspecified; H92.03 Otalgia, bilateral; R09.81 Nasal congestion; Z03.818 Encounter for observation for suspected exposure to other biological agents ruled out
CPT/HCPCS: 0241U; 99283

== ENCOUNTER 2024-06-16 21:50 | Emergency (ER) | payer OTHER, SELFPAY ==
--- NOTE | ~2024-06-16 | XR_ITS ---
CLINICAL HISTORY: pain swelling 2 view right forearm Comparison: None Findings: Mild radial cortex deformity of the distal radius appears old. No acute displaced fracture of the right radius or right ulna. Fifth metacarpal deformity noted. Mild osteoarthritis of the imaged wrist. Dislocation of the imaged wrist or imaged elbow. Mild soft tissue prominence is nonspecific. No radiopaque retained foreign body. IMPRESSION: 1. No acute fracture of the right radius or right ulna. 2. Old 5th metacarpal deformity. This document has been electronically signed by: Antonio Melendez MD on 06/16/2024 22:51:32
--- NOTE | ~2024-06-16 | XR_ITS ---
CLINICAL HISTORY: pain swelling 3 view right hand Comparison: None Findings: Mild deformity of the 5th metacarpal appears old/chronic. No acute displaced fracture. No dislocation. 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 No radiopaque retained foreign body. IMPRESSION: 1. No acute fracture or dislocation. 2. Mild old deformity of the 5th metacarpal. This document has been electronically signed by: Antonio Melendez MD on 06/16/2024 22:47:45
[2024-06-16 22:00] VITALS: BP 163/102; PULSE 76; RESP 16; TEMP 37; BMI 42.1
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
[2024-06-17 00:56] VITALS: BP 163/102; PULSE 76; RESP 16; TEMP 37
== END 2024-06-17 00:57 | disposition home or self-care (01) ==
LOC: HO.ED 06-17 00:45
PROVIDERS: Emergency Provider Emergency Medicine
DX: S40.021A Contusion of right upper arm, initial encounter (principal); M79.601 Pain in right arm; Y04.8XXA Assault by other bodily force, initial encounter; Y93.9 Activity, unspecified; Y92.239 Unspecified place in hospital as the place of occurrence of the external cause; Y99.0 Civilian activity done for income or pay
CPT/HCPCS: 73090; 73130; 99283

== ENCOUNTER → 2024-06-16 22:10 | Outpatient (BNV) | payer OTHER, SELFPAY | PROVIDERS: Visit Provider Radiology Neuroradiology | DX: M79.641 Pain in right hand (principal); M79.631 Pain in right forearm | CPT/HCPCS: 73090; 73130 ==

== ENCOUNTER 2024-07-10 18:12 | Emergency (ER) | payer SELFPAY ==
[2024-07-10 18:15] VITALS: BP 169/80; PULSE 73; RESP 18; TEMP 36.2; O2SAT 98; BMI 47.3
--- NOTE | 2024-07-10 18:20 | ED.WOUNDLAC ---
HPI - Wound/Laceration General Chief Complaint: Wound/Laceration Stated Complaint: finger infection Time Seen by Provider: 07/10/24 20:59 History of Present Illness ED Provider: Dayana GORDON narrative: The patient is a 44-year-old woman who has been developing pain over the last 36-48 hours at the tip of her left middle finger. She says that she bites her fingernails often. She denies any distinct injury but she has been noticing that she has accidentally struck the tip of her finger recently and it has been very painful. The pain is primarily on the ulnar side of the distal finger near the nail. No fevers. Related Data Previous Rx's ?Medication ?Instructions ?Recorded cyclobenzaprine 10 mg tablet 10 mg PO TID PRN muscle spasm #10 06/23/23 tabs ketorolac 10 mg tablet 10 mg PO BID #7 tabs 06/23/23 mupirocin 2 % topical ointment 1 appl topical TID #15 grams 09/19/23 prednisone 20 mg tablet 40 mg (2 x 20 mg) PO DAILY #10 tabs 04/11/24 amoxicillin 875 mg-potassium 1 tab PO BID #13 tabs 05/16/24 clavulanate 125 mg tablet cephalexin 500 mg capsule 500 mg PO QID 7 days #28 caps 07/10/24 doxycycline monohydrate 100 mg 100 mg PO BID #14 caps 07/10/24 capsule Allergies Allergy/AdvReac Type Severity Reaction Status Date / Time ibuprofen Allergy Unknown Unknown Verified 07/10/24 18:17 Sulfa (Sulfonamide Allergy Unknown Unknown Verified 06/16/24 22:06 Antibiotics) Review of Systems Review of Systems: Yes all other systems are reviewed and are negative [facility] Social History Social History Smoked in Last 30 Days: No Use of substances other than those prescribed or required for medical reasons: No Advance Directives: No Advance Directives Information Provided: Yes Physical Exam Vital Signs: Vital Signs: Last Vital Signs Temp 98.3 F 07/10/24 21:50 Pulse 70 07/10/24 21:50 Resp 16 07/10/24 21:50 BP 199/110 H 07/10/24 21:50 Pulse Ox 99 07/10/24 21:50 O2 Del Method Room Air 07/10/24 21:50 BMI result Body Mass Index 47.3 Const: General: cooperative and healthy appearing Orientation/consciousness: patient oriented x3 HEENT: Face and sinus: Yes normal facial exam Mouth: Normal oral and palatal mucosa present Eyes: General: appearance normal, both eyes and all related structures Neck: Neck: Yes normal visual inspection and Yes full ROM Skin: Other: There is redness to the tip of the middle finger distally. The fingernail. On the ulnar side of the far end of the fingernail there was a localized area of swelling and tenderness. There seemed to be some lymphangitic streaking changes of the ulnar side of the finger but not on the hand. Neuro: General: patient oriented x3, gait normal, tone normal, moves all extremities, no focal motor deficits and CN's II-XI intact bilaterally Extrem: Other: Patient has redness, swelling, and tenderness on the ulnar side of the distal left middle finger with the maximal area of swelling just adjacent to the fingernail. Normal tendon function of the finger. Course Course Course Narrative: This is an RME: Additional HPI, ROS, PE not included below will be deferred to primary provider. RME assessment and note performed by: Tika Wan PA-C This is a [id number] who presents to the ER with complaints of L middle digit pain and swelling. Reports she noticed some redness and swelling and kept banging it at work. Area of induration and fluctuance noted to the lateral nail border. Consistent with paronychia, would benefit from I&D. Further ER evaluation needed. Medications Administered Discontinued Medications Generic Name Dose Route Start Last Admin Trade Name Adrián PRN Reason Stop Dose Admin Acetaminophen 975 mg 07/10/24 21:07/10/24 21:14 Acetaminophen 325 Mg Tablet PO 07/10/24 21:08 975 mg ONCE ONE Administration Bacitracin 1 appl 07/10/24 21:35 07/10/24 21:40 Bacitracin Oint 0.9 Gm Packet TOPICAL 07/10/24 21:36 1 appl ONCE ONE Administration Protocol Cephalexin HCl 1,000 mg 07/10/24 21:07 07/10/24 21:14 Cephalexin 500 Mg Capsule PO 07/10/24 21:08 1,000 mg ONCE ONE Administration Doxycycline Monohydrate 100 mg 07/10/24 21:07 07/10/24 21:14 Doxycycline Monohydrate 100 Mg Capsule PO 07/10/24 21:08 100 mg ONCE ONE Administration Lidocaine HCl 10 ml 07/10/24 21:06 07/10/24 21:16 Lidocaine Hcl 1 % Mpf 5 Ml Vial INFILTRATI 07/10/24 21:07 10 ml ONCE ONE Administration Medical Decision Making Medical Decision Making [facility] Narrative: Clinically the patient seems to have a paronychia of the left middle finger. I explained the rationale of treatment to the patient and she consented to a drainage procedure. The base of the finger and the finger itself was prepped Betadine. I administered a digital block using a 30 gauge needle. I injected 4 mL of 1% lidocaine at the base of each side of the finger. This provided good anesthesia. I was then able to use a 11. Blade to elevate the paronychial skin from the nail on the ulnar side of the finger and released a small amount of pus. The patient was started on cephalexin and doxycycline. The pus from the wound was sent for culture. The patient was discharged with prescriptions for cephalexin and doxycycline. Procedures Abscess I/D Site: hand ( Left middle finger paronychia) Side (if applicable): left Local Anesthetic: lidocaine 1% Amount of anesthesia used (mL): 8 Technique: other ( under sterile conditions, after administering a digital block, we used a 11. Blade to elevate the paronychial skin from the fingernail and really just small amount of pus.) Amount of fluid expressed (mL): 1 Sent for culture/gram staining?: Yes Irrigation: No Packing used?: none Discharge Plan Discharge Clinical Impression: Paronychia of finger of left hand Patient Disposition: Home, Self-Care Instructions: Paronychia (ED) Additional Instructions: You have an infection by your fingernail which we call a paronychia. This is a small abscess. The abscess was opened and some pus was released. You has been started on antibiotics, cephalexin and doxycycline. Please citrus picker these prescriptions 1st thing in the morning from the pharmacy and take them as directed. Use acetaminophen (Tylenol) as needed for pain. Keep the wound clean and dry. Apply bacitracin daily and with dressing changes. Keep the hand elevated to reduce swelling. My hope is that this will get better on its own. If you have any questions please call your regular primary care doctor. Additionally you can contact the orthopedic office where you might be able to be seen for a more specialist opinion. Return to the emergency room if significantly worse. Prescriptions: New cephalexin 500 mg capsule 500 mg PO QID 7 Days Qty: 28 0RF doxycycline monohydrate 100 mg capsule 100 mg PO BID Qty: 14 0RF No Action ketorolac 10 mg tablet 10 mg PO BID Qty: 7 0RF Rx Instructions: maximum total duration of 5 days from all oral, intranasal, or parenteral formulations cyclobenzaprine 10 mg tablet 10 mg PO TID PRN (Reason: muscle spasm) Qty: 10 0RF mupirocin 2 % ointment 1 appl topical TID Qty: 15 0RF prednisone 20 mg tablet 40 mg PO DAILY Qty: 10 0RF amoxicillin-pot clavulanate 875-125 mg tablet 1 tab PO BID Qty: 13 0RF Referrals: [facility] [place] [facility] [place] [facility] [Provider Group] (paronychia) Stand Alone Forms: Work/School Release Interventions: ED Discharge Assessment Last Done: 07/10/24 21:50 Discharge Date/Time: 07/10/24 22:00 Print Language: Mosotho
--- NOTE | 2024-07-10 21:01 | PC.NURSE ---
Pt is a&ox4, no signs of distress Pt reports 10/10 finger pain middle finger red and warm Plan of care ongoing.
[2024-07-10] MEDS: cephALEXin 500 MG CAPSULE 1000 MG PO (21:14)
[2024-07-10] MEDS: Doxycycline Monohydrate 100 MG CAPSULE PO (21:14)
[2024-07-10] MEDS: Acetaminophen 325 MG TABLET 975 MG PO (21:14)
[2024-07-10] MEDS: Lidocaine HCl 1 % MPF 5 ML VIAL 10 ML INFILTRATI (21:16)
--- NOTE | 2024-07-10 21:17 | PC.NURSE ---
Pt a&ox4, no signs of distress Pt medicated per mar Lidocaine given by provider Tor Plan of care ongoing.
[2024-07-10] MEDS: Bacitracin Oint 0.9 GM PACKET 1 APPL TOPICAL (21:40)
--- NOTE | 2024-07-10 21:44 | PC.NURSE ---
Pt medicated per [facility] Plan of care ongoing.
[2024-07-10 21:45] VITALS: BP 199/110; PULSE 70; RESP 16; TEMP 36.8; O2SAT 99
[2024-07-10 21:50] VITALS: BP 199/110; PULSE 70; RESP 16; TEMP 36.8; O2SAT 99
--- NOTE | 2024-07-10 21:58 | PC.NURSE ---
Provider Tor notified and aware of pts b/p 199/110. No new orders provider would like pt to follow up with pcp Pt advised.
== END 2024-07-10 22:00 | disposition home or self-care (01) ==
PROVIDERS: Emergency Provider Emergency Medicine
DX: L03.012 Cellulitis of left finger (principal); M79.645 Pain in left finger(s)
CPT/HCPCS: 10060; 87070; 87077; 87186; 87205; 99284; J2003